=== PATIENT | female | born 1975 | race Caucasian/White ===

== ENCOUNTER 2023-03-08 16:27 | Outpatient (OUT) | payer OTHER, SELFPAY ==
--- NOTE | 2023-03-08 | XR_ITS ---
The [address] [address] Patient Name: MICHELLE MALDONADO MRN: [id number] date: 1975 Sex: F Assigned Patient Location: [facility] Current Patient Location: Accession/Order Number: [id number] Exam Date: 03/08/2023 16:35 Report Date: 03/09/2023 01:18 At the request of: RONALD PÉREZ Procedure: XR lumbar spine min 4V EXAMINATION: XR lumbar spine min 4V HISTORY: LOW BACK PAIN , right hip pain COMPARISON: XR L-spine 03/07/2018 FINDINGS: BONES: Mild grade 1 anterolisthesis of L3 on 4. Multilevel mild degenerative facet arthropathy. No fracture. DISC SPACES: Moderate narrowing L5-S1. PARASPINOUS: Negative. No paraspinous abnormality is seen. OTHER: Negative. XR/XR lumbar spine min 4V IMPRESSION: 1. Multilevel mild/moderate degenerative changes; stable to slightly progressed. Electronically authenticated by: JAELYN AGUIAR Date: 03/09/2023 01:18
== END 2023-03-08 16:28 | disposition home or self-care (01) ==
LOC: RAD 16:30
PROVIDERS: PCP Family Medicine; Visit Provider Family Medicine
DX: M51.36 Other intervertebral disc degeneration, lumbar region (principal)
CPT/HCPCS: 72110

== ENCOUNTER 2024-02-01 13:53 | Outpatient (OUT) | payer OTHER, SELFPAY ==
--- NOTE | 2024-02-01 14:00 | CA_ITS ---
Patient Name: MICHELLE MALDONADO MR#: [id number] : 1975 Exam Date: 02/01/2024 Ordering Doctor: DR Yuri Baxter . ECHOCARDIOGRAM REPORT PROCEDURE: CA ECHO DOPPLER COMPLETE INDICATIONS: Shortness of breath COMPARISON: None. DESCRIPTION: COMPLETE ECHOCARDIOGRAM Real-time transthoracic echocardiography with 2D, M-mode, spectral and color flow Doppler performed. QUALITY: Technical quality was good. LEFT VENTRICLE: Normal chamber size. Normal left ventricular wall thickness. Global left ventricular systolic function is normal. LV EF: Estimated left ventricular ejection fraction is 55-60 %. DIASTOLIC: Normal diastolic function. ATRIAL SEPTUM: LEFT ATRIUM: Normal chamber size. RIGHT ATRIUM: Normal chamber size. RIGHT VENTRICLE: Normal chamber size. Normal right ventricular systolic function. TRICUSPID VALVE: Normal mobility and thickness. No stenosis with trivial regurgitation. No evidence of pulmonary hypertension. RVSP 32 mmHg MITRAL VALVE: Normal mobility and thickness. No evidence of mitral valve stenosis. There is no mitral annular calcification. Trivial mitral regurgitation. AORTIC VALVE: Normal trileaflet appearance. No visible sclerosis. Normal leaflet mobility. No evidence of aortic valve stenosis. No aortic regurgitation. AORTIC ROOT: Normal diameter and appearance. PULMONIC VALVE: Normal thickness and mobility. No stenosis. No regurgitation. PERICARDIUM: No evidence of pericardial effusion. IVC: Collapses with inspirations. Normal size. PLEURA: CONCLUSION: 1. Normal left ventricular size and systolic function. Estimated LVEF is 55 to 60%. 2. Normal diastolic function. 3. Normal right ventricular size and systolic function. 4. No significant valvular dysfunction. 5. Normal right-sided pressures. 6. No pericardial effusion. Adult Echocardiography Procedure Report Left Ventricle LVEDD (3.7 - 5.6 cm): 4.26 cm LVESD (2.2 - 4.0 cm): 2.90 cm LVIVS thickness (0.6 - 1.2 cm): 0.80 cm LVPW thickness (0.5 - 1.0 cm): 0.89 cm e': 0.10 m/s E - e': 7.87 LVOT Max Gradient: 7.54 mm[Hg], 7.34 mm[Hg] LVOT Area (cm2): 1.36 m/s Peak Velocity (LVOT): 1.37 m/s, 1.35 m/s Mean Velocity (LVOT): 0.97 m/s LVOT Diameter 1.87 cm Left Ventricular Ejection Fraction: 55-60 % Left Atrium LA Volume Index (2D A2C): 14.13 ml/m2 Left Atrium Systolic Dimension: 3.04 cm Mitral Valve MV E to A Ratio: 0.79 Mitral Valve A-Wave Peak Velocity: 1.02 m/s Mitral Valve E-Wave Peak Velocity: 0.81 m/s Right Ventricle RV Internal Diastolic Dimension: 2.82 cm Aorta AO Root Diam: 2.72 cm Ascending Ao Diam: 2.68 cm Aortic Valve AoV Area (Peak Jim): 2.49 cm2, 2.47 cm2, 2.52 cm2 AoV Area (VTI): 2.27 cm2, 2.28 cm2, 2.26 cm2 Peak Velocity(Antegrade Flow): 1.52 m/s, 1.48 m/s Peak Gradient(Antegrade Flow): 9.27 mm[Hg], 8.73 mm[Hg] Mean Velocity(Antegrade Flow): 1.08 m/s, 1.09 m/s Mean Gradient(Antegrade Flow): 5.29 mm[Hg], 5.35 mm[Hg] Velocity Time Integral: 32.33 cm, 31.86 cm Tricuspid Valve Peak Velocity (Regurgitant Flow): 2.56 m/s, 2.71 m/s, 2.50 m/s, 2.54 m/s Pulmonic Valve Mean Gradient: 2.19 mm[Hg] Mean Velocity: 0.72 m/s Peak Velocity: 0.90 m/s, 0.91 m/s Peak Gradient: 3.21 mm[Hg], 3.34 mm[Hg] Right Atrium Right Atrium Systolic Pressure: 24.47 ml, 24.47 ml Dictated by: Ander Pratt M.D. on 02/01/2024 at 19:31 Approved by: Ander Pratt M.D. on 02/01/2024 at 19:33
[2024-02-01 14:53] LABS: Basophils Percent Auto 0.4 % (0.2-2.0); Eosinophils Absolute Auto 0.1 10^3/uL (0.0-0.7); Hematocrit 40.2 % (36.0-48.0); Hemoglobin 13.5 g/dL (12.0-16.0); Immature Granulocytes Abs Auto 0.01 10^3/uL (0.00-0.03); Immature Granulocytes Pct Auto 0.1 % (0.0-0.5); Lymphocytes Absolute Auto 3.1 10^3/uL (1.2-3.8); Lymphocytes Percent Auto 45.5 % (20.5-60.0); Mean Corpuscular HGB Conc 33.6 g/dL (29.9-35.2); Mean Corpuscular Volume 92.4 fL (81.0-99.0); Mean Platelet Volume 10.7 fL (9.5-13.5); Monocytes Absolute Auto 0.4 10^3/uL (0.3-0.8); Monocytes Percent Auto 6.1 % (1.7-12.0); Neutrophils Absolute Auto 3.2 10^3/uL (1.4-6.5); Neutrophils Percent Auto 46.9 % (43.0-75.0); Platelet Count 254 10^3/uL (150-450); Red Blood Count 4.35 10^6/uL (4.20-5.40); Red Cell Distribution Width 11.5 % (11.0-15.0); White Blood Count 6.7 10^3/uL (4.0-11.0)
[2024-02-01 14:56] LABS: Estimated Average Glucose 94 mg/dL; Glycohemoglobin A1C 4.9 % (4.5-6.2)
[2024-02-01 15:33] LABS: Alanine Aminotransferase 22 U/L (14-59); Albumin Globulin Ratio 1.6; Albumin Level 4.4 g/dL (3.4-5.0); Alkaline Phosphatase 93 U/L (46-116); Anion Gap 14.2; Aspartate Amino Transferase 11 U/L (15-37); BUN Creatinine Ratio 9.2; Bilirubin Direct 0.1 mg/dL (0.0-0.2); Bilirubin Total 0.5 mg/dL (0.2-1.0); Calcium 9.4 mg/dL (8.5-10.1); Carbon Dioxide 28.7 mmol/L (21.0-32.0); Chloride 103 mmol/L (98-107); Chol HDL Ratio 4.4; Cholesterol 190 mg/dL (<=200); Estimated GFR (African America >60 (>=60); Estimated GFR (Non-African Ame >60 (>=60); Globulin 2.8 g/dL; Glucose 93 mg/dL (74-106); HDL Cholesterol 43 mg/dL (40-60); Potassium 3.9 mmol/L (3.5-5.1); Sodium 142 mmol/L (136-145); Thyroid Stimulating Hormone 1.773 uIU/mL (0.358-3.740); Total Protein 7.2 g/dL (6.4-8.2); Triglycerides 177 mg/dL (<=150); VLDL CHOLESTEROL 35.4 mg/dL
== END 2024-02-01 13:54 | disposition home or self-care (01) ==
LOC: CARD 13:54
PROVIDERS: PCP Family Medicine; Visit Provider Family Medicine
DX: Z00.00 Encounter for general adult medical examination without abnormal findings (principal); R60.0 Localized edema; R06.02 Shortness of breath
CPT/HCPCS: 36415; 80048; 80061; 80076; 83036; 84443; 85025; 93306